=== PATIENT | female | born 1950 ===

== ENCOUNTER 2016-09-14 17:12 | Emergency (ER) | payer BC, MEDICARE ==
[2016-09-14] MEDS ORDERED: RX INFO: IV CONTRAST WAS GIVEN 1 EACH MISC MISCELLANE PRN (17:34)
[2016-09-14] MEDS ORDERED: DICYCLOMINE 10 MG/ML 2 ML AMP IM STA (17:34)
[2016-09-14] MEDS ORDERED: SODIUM CHLORIDE 0.9% 1,000 ML IV STA (17:34)
--- NOTE | 2016-09-14 17:36 | ED ---
General Adult HPI - General Chief complaint: Abdominal Pain Stated complaint: abdominal pain, left side Time Seen by Provider: 09/14/16 17:29 Source: patient, RN notes reviewed Mode of arrival: ambulatory Limitations: no limitations - History of Present Illness Initial comments: Patient is a pleasant 66-year-old female presenting to the emergency department complaining of abdominal discomfort. Onset was 2 or 3 days ago. Patient has discomfort left lower abdomen. Patient has had several episodes of diarrhea. No blood. No dysuria or hematuria. No fevers. Patient did have one episode of vomiting the other night. No nausea at this time. - Related Data Home Medications Medication Instructions Recorded Confirmed Ibuprofen [Motrin] 300 - 600 mg PO Q6HR PRN 09/14/16 09/14/16 Previous Rx's Medication Instructions Recorded Cephalexin [Keflex] 500 mg PO Q8HR #21 cap 09/14/16 Ketorolac [Toradol] 10 mg PO Q6HR PRN #15 tab 09/14/16 Allergies Allergy/AdvReac Type Severity Reaction Status Date / Time codeine AdvReac "SWEATY/SHA Verified 09/14/16 17:47 KJOO/ANXIET Y" Review of Systems ROS Statement: Those systems with pertinent positive or pertinent negative responses have been documented in the HPI. ROS Other: All systems not noted in ROS Statement are negative. Constitutional: Denies: fever Eyes: Denies: eye pain ENT: Denies: ear pain Respiratory: Denies: cough Cardiovascular: Denies: chest pain Endocrine: Denies: fatigue Gastrointestinal: Reports: abdominal pain, diarrhea Genitourinary: Denies: dysuria Musculoskeletal: Denies: back pain Skin: Denies: rash Neurological: Denies: weakness Past Medical History Past Medical History: No Reported History History of Any Multi-Drug Resistant Organisms: None Reported Past Surgical History: Cholecystectomy Additional Past Surgical History / Comment(s): fatty tumor right shoulder Past Psychological History: No Psychological Hx Reported Smoking Status: Current every day smoker Past Alcohol Use History: None Reported Past Drug Use History: None Reported General Exam Limitations: no limitations General appearance: alert, in no apparent distress Head exam: Present: atraumatic Eye exam: Present: normal appearance, PERRL ENT exam: Present: normal oropharynx Neck exam: Present: normal inspection Respiratory exam: Present: normal lung sounds bilaterally Cardiovascular Exam: Present: regular rate, normal rhythm Expanded Peripheral pulses: 2+: Dorsalis Pedis (R), Dorsalis Pedis (L) GI/Abdominal exam: Present: soft, tenderness (Mild left lower quadrant to palpation). Absent: distended Extremities exam: Present: normal inspection. Absent: pedal edema, calf tenderness Neurological exam: Present: alert Psychiatric exam: Present: normal affect, normal mood Skin exam: Absent: rash Course Vital Signs 09/14/16 09/14/16 17:22 18:21 Temperature 99.4 F Pulse Rate 88 71 Respiratory 16 18 Rate Blood Pressure 172/77 125/57 O2 Sat by Pulse 98 97 Oximetry Medical Decision Making - Medical Decision Making Patient reexamined and resting comfortably in bed. Patient states discomfort is mild to moderate. Patient is comfortable with discharge home however is also receptive to medication prior to discharge. Patient was updated on results and need for follow-up. - Lab Data Result diagrams: 09/14/16 17:40 09/14/16 17:40 Lab Results 09/14/16 09/14/16 09/14/16 Range/Units 17:40 17:40 17:40 WBC 11.0 H (3.8-10.6) k/uL RBC 4.60 (3.80-5.40) m/uL Hgb 13.8 (11.4-16.0) gm/dL Hct 41.5 (34.0-46.0) % MCV 90.3 (80.0-100.0) fL MCH 30.0 (25.0-35.0) pg MCHC 33.2 (31.0-37.0) g/dL RDW 13.5 (11.5-15.5) % Plt Count 277 (150-450) k/uL Neutrophils % 66 % Lymphocytes % 25 % Monocytes % 4 % Eosinophils % 3 % Basophils % 0 % Neutrophils # 7.3 (1.3-7.7) k/uL Lymphocytes # 2.8 (1.0-4.8) k/uL Monocytes # 0.4 (0-1.0) k/uL Eosinophils # 0.3 (0-0.7) k/uL Basophils # 0.0 (0-0.2) k/uL PT 9.9 (9.0-12.0) sec INR 1.0 (<1.1) APTT 24.1 (22.0-30.0) sec Sodium 141 (137-145) mmol/L Potassium 3.9 (3.5-5.1) mmol/L Chloride 109 H (98-107) mmol/L Carbon Dioxide 21 L (22-30) mmol/L Anion Gap 11 mmol/L BUN 21 H (7-17) mg/dL Creatinine 1.13 H (0.52-1.04) mg/dL Est GFR (MDRD) Af Amer 58 (>60 ml/min/1.73 sqM) Est GFR (MDRD) Non-Af 48 (>60 ml/min/1.73 sqM) Glucose 107 H (74-99) mg/dL Calcium 8.7 (8.4-10.2) mg/dL Total Bilirubin 0.5 (0.2-1.3) mg/dL AST 39 H (14-36) U/L ALT 37 (9-52) U/L Alkaline Phosphatase 93 (38-126) U/L Total Protein 7.0 (6.3-8.2) g/dL Albumin 3.9 (3.5-5.0) g/dL Amylase 82 (30-110) U/L Lipase 138 (23-300) U/L Urine Color Urine Appearance (Clear) Urine pH (5.0-8.0) Ur Specific [place] (1.001-1.035) Urine Protein (Negative) Urine Glucose (UA) (Negative) Urine Ketones (Negative) Urine Blood (Negative) Urine Nitrite (Negative) Urine Bilirubin (Negative) Urine Urobilinogen (<2.0) mg/dL Ur Leukocyte Esterase (Negative) 09/14/16 Range/Units 17:40 WBC (3.8-10.6) k/uL RBC (3.80-5.40) m/uL Hgb (11.4-16.0) gm/dL Hct (34.0-46.0) % MCV (80.0-100.0) fL MCH (25.0-35.0) pg MCHC (31.0-37.0) g/dL RDW (11.5-15.5) % Plt Count (150-450) k/uL Neutrophils % % Lymphocytes % % Monocytes % % Eosinophils % % Basophils % % Neutrophils # (1.3-7.7) k/uL Lymphocytes # (1.0-4.8) k/uL Monocytes # (0-1.0) k/uL Eosinophils # (0-0.7) k/uL Basophils # (0-0.2) k/uL PT (9.0-12.0) sec INR (<1.1) APTT (22.0-30.0) sec Sodium (137-145) mmol/L Potassium (3.5-5.1) mmol/L Chloride (98-107) mmol/L Carbon Dioxide (22-30) mmol/L Anion Gap mmol/L BUN (7-17) mg/dL Creatinine (0.52-1.04) mg/dL Est GFR (MDRD) Af Amer (>60 ml/min/1.73 sqM) Est GFR (MDRD) Non-Af (>60 ml/min/1.73 sqM) Glucose (74-99) mg/dL Calcium (8.4-10.2) mg/dL Total Bilirubin (0.2-1.3) mg/dL AST (14-36) U/L ALT (9-52) U/L Alkaline Phosphatase (38-126) U/L Total Protein (6.3-8.2) g/dL Albumin (3.5-5.0) g/dL Amylase (30-110) U/L Lipase (23-300) U/L Urine Color Yellow Urine Appearance Clear (Clear) Urine pH 6.0 (5.0-8.0) Ur Specific [place] 1.019 (1.001-1.035) Urine Protein Trace H (Negative) Urine Glucose (UA) Negative (Negative) Urine Ketones Negative (Negative) Urine Blood Negative (Negative) Urine Nitrite Negative (Negative) Urine Bilirubin Negative (Negative) Urine Urobilinogen <2.0 (<2.0) mg/dL Ur Leukocyte Esterase Negative (Negative) - Radiology Data Radiology results: report reviewed (Computed tomography scan of the abdomen pelvis shows a 7 mm calculi left UPJ.) Disposition Clinical Impression: Ureterolithiasis Disposition: HOME SELF-CARE Condition: Stable Instructions: Kidney Stones (ED) Additional Instructions: Please follow-up with primary care physician in the next couple of days for recheck. Return for uncontrolled pain, fevers, worsening symptoms or other concerns. Prescriptions: Cephalexin [Keflex] 500 mg PO Q8HR #21 cap Ketorolac [Toradol] 10 mg PO Q6HR PRN #15 tab PRN Reason: Pain Referrals: Kaitlyn Gannon MD [Primary Care Provider] - 1-2 days Tomas Sutherland MD [STAFF PHYSICIAN] - 1-2 days
[2016-09-14 17:52] LABS: Appearance,Urine Clear (Clear); Basophils % (A) 0 %; Bilirubin,Urine Negative (Negative); CH 30.4; CHCM 33.8; Eosinophils # (A) 0.3 k/uL (0-0.7); Eosinophils % (A) 3 %; Glucose,Urine (UA) Negative (Negative); HCT 41.5 % (34.0-46.0); HGB 13.8 gm/dL (11.4-16.0); Ketones,Urine Negative (Negative); Leukocyte Esterase,Urine Negative (Negative); Luc # (Auto) 0.16; Luc % (Auto) 2; Lymphocytes # (A) 2.8 k/uL (1.0-4.8); Lymphocytes % (A) 25 %; MCHC 33.2 g/dL (31.0-37.0); MCV 90.3 fL (80.0-100.0); Mean Platelet Volume 7.4; Monocytes # (A) 0.4 k/uL (0-1.0); Monocytes % (A) 4 %; Neutrophils # (A) 7.3 k/uL (1.3-7.7); Neutrophils % (A) 66 %; Nitrite,Urine Negative (Negative); Protein,Urine Trace (Negative); RDW 13.5 % (11.5-15.5); Specific Gravity,Urine 1.019 (1.001-1.035); UA Billing (MACRO vs. MICRO) CHEM; Urobilinogen,Urine <2.0 mg/dL (<2.0); WBC (Perox) 11.08
[2016-09-14 18:01] LABS: Calcium 8.7 mg/dL (8.4-10.2); Potassium 3.9 mmol/L (3.5-5.1); Total Bilirubin 0.5 mg/dL (0.2-1.3)
[2016-09-14 18:04] LABS: Partial Thromboplastin Time 24.1 sec (22.0-30.0); Prothrombin Time 9.9 sec (9.0-12.0)
[2016-09-14] MEDS ORDERED: SODIUM CHLORIDE 0.9% 500 ML IV STA (18:09)
[2016-09-14 18:23] VITALS: RESP 18
--- NOTE | 2016-09-14 18:28 | CT ---
EXAMINATION TYPE: CT abdomen pelvis wo con DATE OF EXAM: 09/14/2016 6:21 PM COMPARISON: NONE HISTORY: Pt states of LLQ pain x1 day and diarrhea x2 days. CT DLP: 310.4 mGycm Automated exposure control for dose reduction was used. TECHNIQUE: Helical acquisition of images was performed from the lung bases through the pelvis. FINDINGS: Lung bases are clear. There is no pleural effusion. Liver spleen pancreas appear normal. Bile ducts are not dilated. There are clips from cholecystectomy . There is no adrenal mass. There is a 7 mm calcification at the left ureteropelvic junction. There i s left-sided hydronephrosis. The right kidney shows no sign of obstruction. There is no retroperitone al adenopathy. Bladder distends smoothly. There is a 1.5 cm calcified uterine fibroid. There are some sigmoid diverticula. There is no evidence of diverticulitis. Appendix appears normal. There is no sign of a bowel obstruction. There is no free air. There is athe rosclerotic vascular calcification. IMPRESSION: OBSTRUCTING CALCULUS AT THE LEFT URETEROPELVIC JUNCTION WITH LEFT-SIDED HYDRONEPHROSIS. NORMAL APPENDIX. SIGMOID DIVERTICULOSIS. ATHEROSCLEROTIC VASCULAR DISEASE.
[2016-09-14] MEDS ORDERED: KETOROLAC 30 MG/ML 1 ML VIAL IVP STA (18:58)
[2016-09-14 19:34] VITALS: BP 154/77; PULSE 77; TEMP 98
== END 2016-09-14 19:34 | disposition home or self-care (01) ==
LOC: EC 17:12
DX: N20.1 Calculus of ureter (principal); R19.7 Diarrhea, unspecified; F17.200 Nicotine dependence, unspecified, uncomplicated; Z88.5 Allergy status to narcotic agent; Z90.49 Acquired absence of other specified parts of digestive tract
CPT/HCPCS: 36415; 80053; 82150; 83690; 85025; 85610; 85730; 81003; 74176; 99284; 96374; 96361 ×2; 96372; J0500; J1885

== ENCOUNTER 2016-09-19 15:24 | Emergency (ER) | payer BC, MEDICARE ==
[2016-09-19] MEDS ORDERED: HYDROmorphone 1 MG/ML 1 ML SYRINGE IM STA (16:15)
[2016-09-19] MEDS ORDERED: cloNIDine HCL 0.1 MG TAB PO STA (16:15)
--- NOTE | 2016-09-19 16:59 | ED ---
General Adult HPI - General Chief complaint: Headache Stated complaint: Head/Neck pain-no injury Time Seen by Provider: 09/19/16 16:03 Source: patient, family, RN notes reviewed Mode of arrival: ambulatory Limitations: no limitations - History of Present Illness Initial comments: Chief complaint history of present illness 66-year-old female here with her significant other. The patient reports that several times for the last several days she's had headaches. Right now it's to the left occipital parietal region. No visual acuity changes denies any nausea. She also has discomfort to the left trapezius muscle. Increases when she looks to the left and when she palpates that muscle at the base of the skull. No rashes noted. - Related Data Previous Rx's Medication Instructions Recorded Cephalexin [Keflex] 500 mg PO Q8HR #21 cap 09/14/16 Ketorolac [Toradol] 10 mg PO Q6HR PRN #15 tab 09/14/16 Butalb/Acetaminophen/Caffeine 1 cap PO Q4HR #20 cap 09/19/16 [Fioricet 50-300-40 mg Capsule] Lisinopril [Zestril] 5 mg PO DAILY #30 tab 09/19/16 Ondansetron Odt [Zofran ODT] 4 mg PO Q8HR PRN #5 tab 09/19/16 Allergies Allergy/AdvReac Type Severity Reaction Status Date / Time codeine AdvReac "SWEATY/SHA Verified 09/19/16 16:21 KOJO/ANXIET Y" Review of Systems ROS Statement: Those systems with pertinent positive or pertinent negative responses have been documented in the HPI. Review of systems patient has a headache no visual acuity changes reports she's had a headache on again off again for several days but usually when she goes to bed she wakes up is gone. Denies any migraine type problems in the past. Denies any fevers. No chest pain shortness breath GI/ problems. All systems reviewed. Past medical problems significant for kidney stone and gallstones. She had a cholecystectomy. Also lipoma removed. Family history noncontributory patient has ALLERGIES to codeine. ROS Other: All systems not noted in ROS Statement are negative. Past Medical History Past Medical History: No Reported History Additional Past Medical History / Comment(s): gall stones History of Any Multi-Drug Resistant Organisms: None Reported Past Surgical History: Cholecystectomy Additional Past Surgical History / Comment(s): fatty tumor right shoulder Past Psychological History: No Psychological Hx Reported Smoking Status: Current every day smoker Past Alcohol Use History: None Reported Past Drug Use History: None Reported General Exam - General Exam Comments Initial Comments: General: The patient is awake and alert, complaining of left occipital parietal headache. Also left trapezius muscle discomfort. Vital signs show temperature 98.1 pulse 82 respiratory rate 16 pulse ox 99% room air initial blood pressure upon arrival to emergency room was 206/98. This was repeated and was 162/80. The patient wants given Catapres 0.1 Eye: Pupils are equal, round and reactive to light, extra-ocular movements are intact ; there is normal conjunctiva bilaterally. No signs of icterus. Ears, nose, mouth and throat: There are moist mucous membranes and no oral lesions. Neck: Left trapezius muscle discomfort at the insertion site of the base of the skull in the left side. No rash noted. Potential early shingles and pain in this area was discussed. No meningismus with neck flexion no stiff neck. Cardiovascular: There is a regular rate and rhythm. No murmur, rub or gallop is appreciated. Respiratory: Lungs are clear to auscultation, respirations are non-labored, breath sounds are equal. No wheezes, stridor, rales, or rhonchi. Gastrointestinal: No nausea no vomiting no abdominal discomfort. Back: No complaint of back pain. Musculoskeletal: Normal ROM, no tenderness, There is no pedal edema. T Neurological: CN II-XII intact, There are no obvious motor or sensory deficits. Coordination appears grossly intact. Speech is normal. No focal or lateralizing findings. Skin: Skin is warm and dry and no rashes or lesions are noted. No bruising, early shingles was discussed. Limitations: no limitations Course Vital Signs 09/19/16 09/19/16 09/19/16 15:27 16:14 17:05 Temperature 98.1 F 97.2 F L Pulse Rate 82 54 L Respiratory 16 18 Rate Blood Pressure 206/98 162/80 142/70 O2 Sat by Pulse 99 97 Oximetry Medical Decision Making - Medical Decision Making Medical decision making; Patient has CT of the brain was done and reviewed by radiologist entire report was reviewed. The final impression is no acute intracranial hemorrhage or midline shift. As read by Dr. burger Active medications including Catapres total and Dilaudid. The patient is feeling much better. Repeat neurological exam is normal. Again no meningismus or stiff neck. The patient will be placed on lisinopril 5 mg daily. Advised to follow with family physician. She'll also be given a prescription for Fioricet to be taken for headache and Zofran to be taken for nausea should it occur. Otherwise to follow-up with family physician in next 24-48 hours Disposition Clinical Impression: Tension type headache, Hypertension Disposition: HOME SELF-CARE Condition: Fair Instructions: Acute Headache (ED), Tension Headache (ED), Hypertension (ED) Additional Instructions: Use Zofran for nausea, lisinopril 5 mg once daily for your blood pressure. Get your blood pressure rechecked daily for the next week prior following up with family physician. Use Fioricet for headaches be taken as directed. Return emergency room with any problems Prescriptions: Butalb/Acetaminophen/Caffeine [Fioricet 50-300-40 mg Capsule] 1 cap PO Q4HR #20 cap Lisinopril [Zestril] 5 mg PO DAILY #30 tab Ondansetron Odt [Zofran ODT] 4 mg PO Q8HR PRN #5 tab PRN Reason: Nausea Time of Disposition: 17:28
[2016-09-19 17:06] VITALS: BP 142/70; PULSE 54; RESP 18; TEMP 97.2
--- NOTE | 2016-09-19 17:07 | CT ---
EXAMINATION TYPE: CT brain wo con DATE OF EXAM: 09/19/2016 4:59 PM HISTORY: Patient complains of headache. CT DLP: 747.1 mGycm. Automated Exposure Control for Dose Reduction was Utilized. TECHNIQUE: CT scan of the head is performed without contrast. COMPARISON: None. FINDINGS: There is no acute intracranial hemorrhage or midline shift identified. Ventricles and sul ci are within normal limits in size. The globes are intact and the visualized sinuses are clear. IMPRESSION: No acute intracranial hemorrhage or midline shift.
== END 2016-09-19 17:37 | disposition home or self-care (01) ==
LOC: EC 15:24
DX: G44.209 Tension-type headache, unspecified, not intractable (principal); I10 Essential (primary) hypertension; F17.200 Nicotine dependence, unspecified, uncomplicated; Z88.5 Allergy status to narcotic agent
CPT/HCPCS: 70450; 99283; 96372; J1170

== ENCOUNTER → 2016-09-22 | Outpatient (CLI) | payer BC, MEDICARE ==
--- NOTE | 2016-09-22 14:33 | XR ---
EXAMINATION TYPE: XR abdomen 1V DATE OF EXAM: 09/22/2016 2:27 PM CLINICAL HISTORY: Renal stones per order. TECHNIQUE: Single supine KUB image of the abdomen is obtained. COMPARISON: CT abdomen and pelvis September 14, 2016. FINDINGS: There is stable 7 mm calculus in the proximal left ureter at inferior L3 vertebral body lev el. The 2 mm lower pole left renal calculus on coronal image 50 is not clearly seen on plain films. T here is 1.5 cm left calcified fibroid. Scattered pelvic phleboliths are redemonstrated. Tubal ligatio n clips in the bilateral pelvis are again seen. Some scattered vascular calcification is present in t he pelvis. Cholecystectomy clips are seen. There is overall nonobstructive bowel gas pattern. Facet arthropathy lower lumbar levels is noted. IMPRESSION: There is stable positioning of 7 mm proximal left ureter calculus.
== END | disposition home or self-care (01) ==
LOC: RADXRMAIN 14:01
PROVIDERS: ATTEND Urology
DX: N20.1 Calculus of ureter (principal)
CPT/HCPCS: 74000

== ENCOUNTER → 2016-11-07 | Outpatient (CLI) | payer BC ==
--- NOTE | 2016-11-07 16:35 | US ---
EXAMINATION TYPE: US kidneys/renal and bladder DATE OF EXAM: 11/07/2016 COMPARISON: NONE CLINICAL HISTORY: N20.1 CALCULUS OF URETER. History of kidney stones. EXAM MEASUREMENTS: Right Kidney: 9.1 x 4.4 x 4.2 cm Left Kidney: 9.8 x 5.2 x 4.2 c Right Kidney: No hydronephrosis or masses seen Left Kidney: No hydronephrosis or masses seen Bladder: wnl Bilateral Jets seen:yes There is no evidence for hydronephrosis at this point in time. No nephrolithiasis is seen. No pauly s are identified. The urinary bladder is anechoic. Bilateral ureteral jets are seen. There is a column of Hardik in the left kidney. IMPRESSION: 1. Normal retroperitoneal ultrasound 2. No ultrasound evidence of renal lithiasis.
== END | disposition home or self-care (01) ==
LOC: RADUSWWP 08:35
PROVIDERS: ATTEND Urology
DX: N20.1 Calculus of ureter (principal)
CPT/HCPCS: 76770

== ENCOUNTER 2019-04-17 10:15 | Emergency (ER) | payer BC ==
[2019-04-17 10:21] VITALS: PULSE 77; RESP 18; TEMP 98
--- NOTE | 2019-04-17 11:11 | ED ---
General Adult HPI - General Source: patient, RN notes reviewed Mode of arrival: ambulatory Limitations: no limitations <Marc Leo - Last Filed: 04/17/19 11:42> <Jovan Dinero - Last Filed: 04/17/19 11:46> - General Chief complaint: Dental/Oral Stated complaint: Swollen face & neck Time Seen by Provider: 04/17/19 10:29 - History of Present Illness Initial comments: 68-year-old female presents to the emergency department for a chief complaint of right-sided dental pain. Patient states that she has had pain on the right side of her lower jaw for about 1.5 days. States this started late Sunday night. States she started have mild swelling at that time. States the swelling worsened yesterday. States she called her dentist and he called her in penicillin. States she started this about 24 hours ago. States she is supposed to see him today at 3:30 but the swelling worsened overnight. States she called the dentist and they told her if the swelling gets too bad to go to the emergency department. Patient states she does have pain on the right side of her face. She denies fevers or chills. She states she is supposed to get the tooth pulled today but they wanted the swelling to go down.Patient has no other complaints at this time including shortness of breath, chest pain, abdominal pain, nausea or vomiting, headache, or visual changes. (Marc Leo) - Related Data Home Medications Medication Instructions Recorded Confirmed Ibuprofen [Motrin Ib] 600 mg PO TID PRN 04/17/19 04/17/19 Penicillin V Potassium [Pen Vee K] See Taper PO DIRECTED 04/17/19 04/17/19 Allergies Allergy/AdvReac Type Severity Reaction Status Date / Time codeine AdvReac "SWEATY/SHA Verified 04/17/19 11:18 KOJO/ANXIET Y" Review of Systems ROS Other: All systems not noted in ROS Statement are negative. <Macr Leo - Last Filed: 04/17/19 11:42> ROS Other: All systems not noted in ROS Statement are negative. <Jovan Dinero - Last Filed: 04/17/19 11:46> ROS Statement: Those systems with pertinent positive or pertinent negative responses have been documented in the HPI. Past Medical History Past Medical History: No Reported History Additional Past Medical History / Comment(s): gall stones History of Any Multi-Drug Resistant Organisms: None Reported Past Surgical History: Cholecystectomy Additional Past Surgical History / Comment(s): fatty tumor right shoulder Past Psychological History: No Psychological Hx Reported Smoking Status: Current every day smoker Past Alcohol Use History: None Reported Past Drug Use History: None Reported <Marc Leo - Last Filed: 04/17/19 11:42> General Exam Limitations: no limitations General appearance: alert, in no apparent distress Head exam: Present: atraumatic, normocephalic, normal inspection Eye exam: Present: normal appearance, PERRL, EOMI. Absent: scleral icterus, conjunctival injection, periorbital swelling ENT exam: Present: normal exam, mucous membranes moist. Absent: normal oropharynx (Patient has tenderness to the right side of the lower jaw. There is moderate edema in this area. No erythema. There is no drainable dental abscess along the gumline. No sublingual tenderness or edema. No trismus.) Neck exam: Present: normal inspection, full ROM. Absent: tenderness, me ningismus, lymphadenopathy Respiratory exam: Present: normal lung sounds bilaterally. Absent: respiratory distress, wheezes, rales, rhonchi, stridor Cardiovascular Exam: Present: regular rate, normal rhythm, normal heart sounds. Absent: systolic murmur, diastolic murmur, rubs, gallop, clicks Neurological exam: Present: alert <Marc Leo - Last Filed: 04/17/19 11:42> Course <Jovan Dinero - Last Filed: 04/17/19 11:46> Vital Signs 04/17/19 04/17/19 10:17 11:15 Temperature 98.0 F Pulse Rate 77 Respiratory 18 Rate Blood Pressure 192/81 134/82 O2 Sat by Pulse 99 Oximetry - Reevaluation(s) Reevaluation #1: 04/17/19 11:45 PA supervision: I pursued a [id number] evaluation the patient she did present with complaints of right-sided facial swelling she believes is secondary to a dental problem. She does have a lower rate/molar that she states it is painful she was started on penicillin yesterday by her doctor she does have a full appointment at 3:30 this afternoon. She does demonstrate some swelling to the right lower mandible area no definite drainage or abscess on oral examination. Dentition does appear to be intact. Assessment and plan she'll be discharged with instructions to keep her follow-up appointment is. She is in agreement with this. (Jovan Dinero) Medical Decision Making <Marc Leo - Last Filed: 04/17/19 11:42> - Medical Decision Making HPI and physical exam is tachycardia minute. History pertinent for right lower tooth pain 1.5 days. Antibiotic therapy was started only 24 hours ago. Patient needs to do antibiotics for about 24-48 hours before seeing improvement in symptoms. Patient does not have any trismus. The patient does not have any tenderness or swelling sublingually. No fever or chills. No history of diabetes. Patient was also evaluated by Dr. Dinero. At this time we recommend continuing penicillin and attending her dentist appointment today in 4 hours. We did give her a dose of IM Rocephin. Patient will return here if she has worsening symptoms (Marc Leo) Disposition Is patient prescribed a controlled substance at d/c from ED?: No Time of Disposition: 11:43 <Marc Leo - Last Filed: 04/17/19 11:42> <Jovan Dinero - Last Filed: 04/17/19 11:46> Clinical Impression: Pain, dental Disposition: HOME SELF-CARE Condition: Good Instructions (If sedation given, give patient instructions): Dental Abscess (ED) Additional Instructions: Please continue Motrin and Tylenol. Ice the area for 20 minutes every hour. Continue taking penicillin. Follow-up with her dentist today or appointment at 3:20. Return to the emergency department if you have any worsening symptoms. Referrals: Javier Morfin MD [REFERRING] - 1-2 days
[2019-04-17 11:14] VITALS: BP 134/82
[2019-04-17] MEDS ORDERED: cefTRIAXone 1,000 MG VIAL (IM USE) IM STA (11:38)
== END 2019-04-17 11:56 | disposition home or self-care (01) ==
LOC: EC 10:15
DX: K08.89 Other specified disorders of teeth and supporting structures (principal); R00.0 Tachycardia, unspecified; R68.84 Jaw pain; R22.0 Localized swelling, mass and lump, head; F17.200 Nicotine dependence, unspecified, uncomplicated; Z88.5 Allergy status to narcotic agent
CPT/HCPCS: 99283; 96372; J0696